=== PATIENT | male | born 1935 | race Caucasian/White ===

== ENCOUNTER 2019-01-05 14:54 | Emergency (ER) | payer OTHER, MEDICARE ==
[~2019-01-05] VITALS: Ht 172.7 cm; Wt 70.9 kg
[2019-01-05] MEDS ORDERED: CALC600T66 PO (15:05)
[2019-01-05] MEDS ORDERED: CYAN1000VL IM (15:05)
[2019-01-05] MEDS ORDERED: PACE200T PO (15:05)
[2019-01-05] MEDS ORDERED: ELIQ5TAB PO (15:05)
[2019-01-05] MEDS ORDERED: FURO40TA2 PO (15:05)
[2019-01-05] MEDS ORDERED: METO1TAB87 PO (15:05)
[2019-01-05] MEDS ORDERED: ADACEL/BOOSTRIX VACCINE (DIPHTH/PERTUSS/ACELL/TETANUS)0.5ML SYR (90715) IM ONE (16:00)
--- NOTE | 2019-01-05 16:11 | REP ---
CT brain: 01/05/2019. Indication: Head trauma. Comparison: None. Technique: Unenhanced axial CT images of the brain were obtained from skull base to vertex. Findings: There is no acute intracranial hemorrhage, acute cortical infarction, mass effect, hydrocephalus or acute calvarial fracture. Age-related volume loss is present. Patchy areas of white matter hypoattenuation are scattered throughout the cerebral hemispheres. Chronic-appearing small right cerebellar infarction is noted. Impression: No acute intracranial process. Electronically Signed by Jagdeep Arauz DO 01/05/2019 04:02 P
[2019-01-05] MEDS ORDERED: CYCL10TA PO (16:59)
[2019-01-05] MEDS ORDERED: GABA-1171 PO (18:04)
[2019-01-05 18:21] VITALS: BP 100/64
== END 2019-01-05 18:23 | disposition home or self-care (01) ==
LOC: M ED 14:54
DX: S00.81XA Abrasion of other part of head, initial encounter (principal); W18.39XA Other fall on same level, initial encounter; Y92.89 Other specified places as the place of occurrence of the external cause; M54.10 Radiculopathy, site unspecified; M47.897 Other spondylosis, lumbosacral region; I11.0 Hypertensive heart disease with heart failure; I50.9 Heart failure, unspecified; C61 Malignant neoplasm of prostate; I48.91 Unspecified atrial fibrillation; D64.9 Anemia, unspecified; E78.5 Hyperlipidemia, unspecified; L40.9 Psoriasis, unspecified; Z79.899 Other long term (current) drug therapy; Z79.01 Long term (current) use of anticoagulants; Z87.891 Personal history of nicotine dependence